=== PATIENT | female | born 1990 ===

== ENCOUNTER 2025-06-08 13:27 | Outpatient (AMB) | payer OTHER, SELFPAY ==
--- NOTE | 2025-06-08 13:40 | A.PHYSOV_ITS ---
Vital Signs 06/08/25 13:50 Height 5 ft 4 in Weight 140 lb BMI 24.0 Intake Visit Reasons: NPV- left hand pain Intake Note: Patient is a 35 year old female here for initial visit. Patient has been referred for left hand pain. Pharmacists Required: No Allergies acetaminophen (From PERCOCET) Allergy (Unknown, Verified 06/08/25 13:41) NAUSEA peanut (PEANUT) Allergy (Unknown, Verified 06/08/25 13:41) RASH HPI Comments Details: History of Present Illness The patient is a 35 year old female presenting for evaluation of left upper extremity symptoms. Her symptoms began in March, a couple of months ago, with an episode where her left hand was completely numb for two days while on vacation, for which she did not seek medical attention. Currently, she experiences permanent numbness and a tingling sensation in her left pinky and the ulnar side of her hand. Associated symptoms include pain that shoots from her hand up to the outside of her elbow and significant hand weakness, which makes it difficult to hold objects and prevents her from working out with her left hand. She also wakes up in the middle of the night with significant pain, which she notices is worse when sleeping with her elbow bent. She denies any associated neck or shoulder pain. She has tried ibuprofen for the pain without significant relief. 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 I reviewed the referring provider's no prior to consultation. Pain Description - Onset: The patient's symptoms started a couple of months ago, around March. - Location: Pain is located in the left hand and radiates up to the outer aspect of the left elbow. - Quality: The patient describes the sensation in her hand as permanently numb and tingly, with shooting pain up to the elbow. - Exacerbating Factors: Pain worsens at night, and she often wakes up with significant pain, particularly when her elbow has been bent during sleep. - Interference with Function: The associated hand weakness makes it difficult to hold objects and prevents her from working out. - Palliative Factors: She reports that ibuprofen is not helping with the pain. [facility] Social History (Updated 06/08/25 @ 13:48 by Belen Mendez MA) Alcohol intake: current Alcohol intake frequency: does not drink Patient Tobacco Use Status: Never used Tobacco Use of substances other than those prescribed or required for medical reasons: No Review of Systems Narrative Review of Systems - Neurological: Reports constant numbness and tingling in the left pinky and ulnar side of the hand, along with subjective weakness in the hand. - Musculoskeletal: Reports pain in the left hand that shoots to the elbow. - Denies neck pain or shoulder pain. Physical Exam Exam Exam: Physical Exam - Cervical Spine: No tenderness to palpation. - Full and painless range of motion with flexion, extension, and bilateral rotation. - Spurling's test was negative bilaterally. - Upper Extremities: Shoulders are non-tender to palpation with full, painless range of motion. - Motor strength is 5/5 and symmetric with wrist supination/pronation, flexion/extension, and hand mortgage loan closer. - Sensation is decreased on the ulnar aspect of the left hand. - Tinel's sign at the cubital tunnel is positive on the left, eliciting tingling in the ulnar nerve distribution. - There is tenderness to palpation over the left lateral epicondyle. - Pain is reproduced at the left lateral epicondyle with resisted wrist extension. - There is no tenderness to palpation over the medial epicondyle. Vital Signs: BMI result Body Mass Index 24.0 Assessment & Plan Assessment & Plan (1) Tennis elbow: Code(s): M77.10 - Lateral epicondylitis, unspecified elbow Category: Medical Qualifiers: Laterality: left Qualified Code(s): M77.12 - Lateral epicondylitis, left elbow (2) Ulnar neuritis: Code(s): G56.20 - Lesion of ulnar nerve, unspecified upper limb Category: Medical Qualifiers: Laterality: right Qualified Code(s): G56.21 - Lesion of ulnar nerve, right upper limb Plan Pain Management - Analgesia: The patient has tried ibuprofen with minimal to no relief. - Activities of Daily Living: The patient reports she is unable to work out with her left hand and has difficulty holding objects due to pain and weakness. Plan Patient was informed and verbally consented to the use of an ambient scribe for clinic note documentation during this visit. 1. Left Ulnar Neuritis The patient's symptoms of numbness and tingling in the ulnar distribution of her left hand (pinky and half of the ring finger), along with a positive Tinel's sign at the elbow, are highly suggestive of ulnar nerve compression, most likely at the cubital tunnel. A cervical spine etiology is less likely given the negative physical exam findings, including a negative Spurling's test. The constant nature of the numbness is concerning for a more aggressive nerve compression. An EMG of the left upper extremity will be ordered to confirm the diagnosis, localize the site of nerve compression, and assess its severity, which will help guide further treatment decisions. The patient was counseled to avoid prolonged or repetitive elbow flexion, such as during sleep or while driving, and to straighten the elbow to alleviate symptoms. 2. Left Lateral Epicondylitis The patient also has a concurrent diagnosis of left lateral epicondylitis, or tennis elbow, evidenced by point tenderness over the lateral epicondyle and pain with resisted wrist extension. This condition is related to the wrist extensor muscles and is considered separate from her neuropathic symptoms. The patient was advised to begin a strengthening program for the wrist extensors, using a light weight (e.g., a soup can) for high-repetition exercises. Other conservative management options discussed include using an elbow strap for activities, physical therapy, and a possible future cortisone injection if symptoms do not improve, though an injection is not recommended at this time. Discussion Notes I discussed with the patient that she appears to have two separate issues occurring in her left arm. I explained that the numbness and tingling in her pi nky and adjacent finger are likely caused by a pinched ulnar nerve, most commonly compressed at the elbow in the cubital tunnel, and less likely originating from her neck. I advised her that avoiding prolonged elbow flexion, especially during sleep, by keeping the arm straight, can help alleviate these symptoms. To further evaluate the nerve issue, I recommended an EMG test. I described the procedure as an electrodiagnostic test that can be uncomfortable, but is useful for identifying the location and severity of nerve compression. I explained that while most cases do not require surgery, monitoring for worsening symptoms is important, as severe, untreated compression can lead to permanent nerve damage over time. For the separate issue of her elbow pain, I diagnosed her with lateral epic ondylitis (tennis elbow). I recommended conservative management including strengthening exercises for the forearm muscles, with options for an elbow strap or formal physical therapy. I mentioned a cortisone shot as a future possibility but would prefer to avoid it for now. The patient agreed with the plan to proceed with the EMG. I will arrange for the test to be done with Dr. O[place]io [place] [facility] and will follow up with her once the results are available to discuss the findings and next steps. Patient Instructions - To help with the numbness and tingling in your hand, try to keep your left arm straight as much as possible, especially when sleeping or driving. - For the pain on the outside of your elbow, begin strengthening exercises by using a light weight (like a soup can) to lift your wrist up and down slowly. - Aim for 20-40 repetitions until you feel a burn in your forearm muscles. - You may purchase an elbow strap at a pharmacy like [facility] to wear during activities to help reduce strain on your elbow. - We are ordering a nerve test called an EMG for your left arm to find out exactly what is causing the numbness and how severe it is. - Our office will contact you with the details for this appointment. - We will contact you to schedule a follow-up appointment to discuss the results of your EMG test and determine the next steps in your treatment. Orders: Orders NE electromyogram (EMG) Today G56.21 - Lesion of ulnar nerve, right upper limb NE nerve conduction velocity Today G56.21 - Lesion of ulnar nerve, right upper limb Coding Level of Care Code Tele New Pt Level 4 (47225) Diagnoses Lateral epicondylitis of left elbow M77.12 Laterality: left Neuritis of right ulnar nerve G56.21 Laterality: right
[2025-06-08 13:50] VITALS: BMI 24.0
--- OUTSIDE RECORDS SUMMARY | 2025-06-08 14:36 | XMS_ITS | Encounter Summary ---
Author Organization [facility] Address [address] [place] [address] Care Team Providers Care Framing Specialist Name Role Phone Shirley Holly MD Primary Care Provider [phone] Encounter Details Date Type Department Care Team ([facility] Contact Info) Description 05/21/2025 Results Follow-Up [facility] [address] [place] [address] Pete Falcon, EVANGELIST [address] [place] [id number] Social History Tobacco Use Types Packs/Day Years Used Date Smoking Tobacco: Never Smokeless Tobacco: Never Alcohol Use Standard Drinks/Week Comments Yes 0 (1 standard drink = 0.6 oz pur e alcohol) social Housing Instability Answer Date Recorde d Are you worried that in the next 2 months you may not have stable housing? No 01/03/2025 Food Access & Nutrition Answer Date Rec orded Do you have access to a vari ety of food including fruits and vegetables? Yes 01/03/2025 Access to Healthcare Answer Date Record ed Within the last 3 months, ho w many times did you visit the emergency department for your medical care? 0 01/03/2025 Health Literacy Answer Date Recorded How often do you need to hav e someone help you when you read instructions, pamphlets, or other written material from your doctor or pharmacy? Never 01/03/2025 Caregiver: How often do you need to have someone help you when you read instructions, pamphlets, or other written material from your doctor or pharmacy? Not on file 01/03/2025 Financial Risk Answer Date Recorded How hard is it for you to pa y for the very basics like food, housing, medical care, and air conditioning / heating? Not very hard 01/03/2025 Transportation Answer Date Recorded Has the lack of transportati on kept you from meetings, work, or from getting things needed for daily living? No Has the lack of transportati on kept you from medical appointments or from getting medications? No 01/03/2025 Social Isolation Answer Date Recorded How often do you feel lonely or isolated from th ose around you? Never 01/03/2025 Food Risk Answer Date Recorded Within the past 12 months we worried whether our food would run out before we got money to buy more. Never true 01/03/2025 Within the past 12 months th e food we bought just didn't last and we didn't have money to get more. Never true 01/03/2025 Dependent Care Answer Date Recorded Do you need help finding or paying for care for your loved ones. For example, child development assistant or elderly care for an older adult? No 01/03/2025 Education Answer Date Recorded Do you think completing more education or training, like finishing a GED, going to college, or learning a trade, would be helpful for you? No 01/03/2025 Employment and Income Answer Date Recor ded During the last four weeks, have you been actively looking for work? No 01/03/2025 Living Situation Answer Date Recorded What is your living situation? Unrecognized valu e 01/03/2025 Comments No Sex and Gender Information Value Date Recorded Sex Assigned at Not on file Legal Sex Female 4:38 AM EST Gender Identity Not on file Sexual Orientation Not on file documented as of this encounter Plan of Treatment Upcoming Encounters Date Type Department Care Team (Late st Contact Info) Description 09/06/2025 9:00 AM EDT [facility] [address] [facility] [place] [phone] Shirley Holly MD [address] [facility] [place] 11/18/2025 9:00 AM EDT Office Visit Internal Medicine - [address] [phone] Pete Falcon NP [address] [place] [id number] documented as of this encounter Visit Diagnoses Not on filedocumented in this encounter Additional Health Concerns Assessment Noted Time PHQ-9 Depression Total Score: 0 01/04/20 12:33 AM EDT documented as of this encounter Care Teams Framing Specialist Relationship Specialty Start Date End Date Shirley Holly MD [address] [place] [address] PCP - General Internal Medicine 01/13/25 documented as of this encounter
--- OUTSIDE RECORDS SUMMARY | 2025-06-08 14:36 | XMS_ITS | Encounter Summary ---
Author Organization [facility] Address [address] [place] [phone] Phone Care Team Providers Care Estate Planning Paralegal Name Role Phone Mary Posey MD Primary Care Provider Unavailabl e Encounter Details Date Type Department Care Team (Late st Contact Info) Description 01/31/2017 Conversion Encounter [facility] - [address] [phone] Social History Tobacco Use Types Packs/Day Years Used Date Smoking Tobacco: Never Assessed Comments Unknown Sex and Gender Information Value Date Recorded Sex Assigned at Not on file Legal Sex Female 4:44 PM EDT Gender Identity Not on file Sexual Orientation Not on file documented as of this encounter Plan of Treatment Not on file documented as of this encounter Visit Diagnoses Not on filedocumented in this encounter Care Teams Estate Planning Paralegal Relationship Specialty Start Date End Date Mary Posey MD PCP - General 01/25/17 documented as of this encounter
--- OUTSIDE RECORDS SUMMARY | 2025-06-08 14:36 | XMS_ITS | Clinical Summary ---
Author Organization [facility] Address [address] [place] [phone] Phone Care Team Providers Care Country Singer Name Role Phone Mary Posey MD Primary Care Provider Unavailabl e Immunizations Immunization Administration Dates Next Due DTP 04/16/1994, 2,1990,09/14,1990 HPV, Quadrivalent 10/23/2007,06/24/2007,04/21/20 07 Hep B, ped/adol 10/20/2001,07/21/2001,05/28/2001 Hib (PRP-T) 05/16/1992,03/16/1991,01/14/1991 IPV 04/16/1994, 2,1990,07/17 Influenza, injectable, trivalent 04/21/2007 MMR 08/21/1993,04/23/1991 Meningococcal Conj (Menactra) MCV4P 01/30/2006 Td (adult) (MBL), 2 Lf tetan us toxoid, PF, adsorbed 07/30/1999 Tdap 04/21/2007 Family History Relation Name Status Comments Brother Alive Brother: Asthma Father Father: Carpal tunnel, tendonitis, Depression Mother Mother: Reflux, Panic attacks, Depression, Anxiety, Hypothyroidism, Arthritis Social History Tobacco Use Types Packs/Day Years Used Date Smoking Tobacco: Never Assessed Comments Unknown Sex and Gender Information Value Date Recorded Sex Assigned at Not on file Legal Sex Female 4:44 PM EDT Gender Identity Not on file Sexual Orientation Not on file Plan of Treatment Health Maintenance Due Date Last Done Comments Varicella Vaccines (1 of 2 - 13+ 2-dose series) 2003 DTaP,Tdap,and Td Vaccines (7 - Td or Tdap) 04/21/2017 04/21/2007, 07/30/1999, 04/16/1994, Additional history exists Influenza Vaccines (#1) 2025 04/21/2007 COVID-19 Vaccine ( season) 2025 HIB Vaccines Completed 05/16/1992, 02/17, 01/14/1991 MMR Vaccines Completed 08/21/1993, 04/23/1991 IPV Vaccines Completed 04/16/1994, 08/17, 1990, Additional history exists Hepatitis B Vaccines Completed 10/20/2001, 07/21/2001, 05/28/2001 Meningococcal Vaccine Aged Out 01/30/2006 No mervat jo eligible based on patient's age to complete this topic HPV Vaccines Completed 10/23/2007, 01/2008, 04/21/2007 Hepatitis A Vaccines Aged Out No long er eligible based on patient's age to complete this topic Men B Vaccine Aged Out No longer elig ible based on patient's age to complete this topic Pneumococcal Vaccine Aged Out No long er eligible based on patient's age to complete this topic Care Teams Country Singer Relationship Specialty Start Date End Date Mary Posey MD PCP - General 01/25/17
--- OUTSIDE RECORDS SUMMARY | 2025-06-08 14:36 | XMS_ITS | Clinical Summary ---
Author Organization [facility] [address] [facility] lding Address [address] [place] [address] Phone Care Team Providers Care Senior Linux Engineer Name Role Phone Shirley Holly MD Primary Care Provider [phone] Allergies No known active allergies Medications tazarotene (TAZORAC) 0.05 % cream APPLY TO AFFECTED AREA EVERY DAY AT BEDTIME 5 Active tretinoin (RETIN-A) 0.1 % cream APPLY TO AFFECTED AREAS EVERY 2-3X A WEEK THEN WORK UP TO EVERY NIGHT 5 Active linaCLOtide (Linzess) 72 mcg capsuleIndicatio ns:Irritable bowel syndrome with mixed bowel habits Take 1 capsule (72 mcg total) by mouth 1 (one) time each day. 30 each 11 5 03/02/20 26 Active ondansetron (ZOFRAN) 4 mg tabletIndication s:Gastritis without bleeding, unspecified chronicity, unspecified gastritis type Take 1 tablet (4 mg total) by mouth every 8 (eight) hours if needed for nausea. 20 tablet 2 5 Active Active Problems Problem Noted Date Diagnosed Date Migraines 02/24/2025 Gastritis Overview (02/24/2025): DX:Gastritis Encounters Date Type Department Care Team Description 05/21/2025 Results Follow-Up Internal Medicine - [facility] [address] [place] [address] Pete Falcon NP 05/20/2025 9:31 AM EST - 05/20/2025 11:59 PM EST [facility] [place] [place] [address] Left hand pain Discharge Disposition: Home or Self Care 05/20/2025 9:00 AM EST Office Visit Internal Medicine - [facility] [place] [address] Pete Falcon NP Left hand pain (Primary Dx) 04/14/2025 Telephone Internal Medicine - [facility] [place] [phone] Shirley Holly MD from Last 3 Months Immunizations Immunization Administration Dates Next Due DTP 04/16/1994, 2,1990,09/14,1990 HPV, Quadrivalent 10/23/2007,06/24/2007,04/21/20 07 Hepatitis B (Csdongl-X-Qpnsg , Recombivax HB-Adult) 19yo and older 04/22/2020,11/25/2019,10/21/2019 Hepatitis B Pediatric (Enger ix B; Recombivax HB) to less than 20 yo 10/20/2001,07/21/2001,05/28/2001 HiB PRP-T conjugate (Acthib, Hiberix) 6wks and older 05/16/1992,03/16/1991,01/14/1991 IPV Inactivated polio (Ipol) 6wks and older 04/16/1994,09/15/1991,1990,07/17 Influenza trivalent, 0.5mL, preservative free (Fluarix; FluLaval; Fluzone) ages 6mo and older (Afluria) 3 years and older 04/09/2025,02/26/2020,04/17/2017,03/26 Influenza trivalent, with pr eservative (Fluzone; Afluria) 6mo and older 03/31/2025,04/21/2007 Influenza, Unspecified 04/10/2023 MMR, measles mumps and rubel la Live (Priorix; M-M-R II) 12mo and older 08/21/1993,04/23/1991 Meningococcal MCV4P 01/30/2006 PPD Test 09/01/2012 Td Tetanus diptheria (Tdvax) 7yo and older 07/30/1999 Tdap Tetanus diptheria acell ular pertussis (Boostrix; Adacel) 7yo and older 12/02/2013,04/21/2007 Surgical History Surgery Date Site/Laterality Comments OTHER SURGICAL HISTORY PROCEDURE: DENIES PREVIOUS SURGERY COLONOSCOPY 11/16/2023 - 12/15/2023 negative random biopsy of colon, 10 yr recall ESOPHAGOGASTRODUODENOSCOPY 11/16/2023 - 12/15/2023 Medical History Medical History Date Comments Migraine DX:Migraine Gastritis DX:Gastritis Family History Medical History Relation Name Comments Asthma Brother 1 anxiety Heart attack Maternal Grandfather Grandpa stroke Hyperlipidemia Maternal Grandmother Grandma dm Asthma Mother anxiety Thyroid disease Mother Relation Name Status Comments Brother 1 Brother 2 Alive Daughter Alive healthy Father Alive Maternal Grandfather Grandpa Alive Maternal Grandmother Grandma Alive Mother Alive Social History Tobacco Use Types Packs/Day Years [...] do you feel lonely or isolated from ose around you? Never 01/03/2025 Food Risk [...] for your loved ones. For example, child psychology teacher or elderly care for an older adult? [...] on file Sexual Orientation Not on file Last Filed Vital Signs Vital Sign Reading Time Taken Comments Blood Pressure 102/72 05/20/2025 8:57 AM EST Pulse 68 05/20/2025 8:57 AM EST Temperature - - Respiratory Rate - - Oxygen Saturation - - Inhaled Oxygen Concentration - - Weight 65.1 kg (143 lb 9.6 oz) 05/20/2025 8:57 A M EST Height 162.6 cm (5' 4 ) 05/20/2025 8:57 AM EST Body Mass Index 24.65 05/20/2025 8:57 AM EST Plan of Treatment Upcoming Encounters Date Type Department Care Team (Late st Contact Info) Description 09/06/2025 9:00 AM EDT Office Visit Internal Medicine - [address] [phone] Shirley Holly MD [address] [place], [place] 11/18/2025 9:00 AM EDT Office Visit Internal Medicine - [address] [phone] Pete Falcon NP [address] [place], [place] Health Maintenance Due Date Last Done Comments Cervical Cancer Screening: Pap Smear 2011 HIV Screening 05/20/2022 Hepatitis C Screening 05/20/2022 DTaP,Tdap,and Td Vaccines (8 - Td or Tdap) 12/03/2023 12/02/2013, 04/21/2007, 07/30/1999, Additional history exists COVID-19 Vaccine (2024- season) 2025 Social Influencers of Health Screening 01/03/2026 01/03/2025 RSV Immunization Adult Patients (1 - 1-dose 75+ series) 2065 HIB Vaccines Completed 05/16/1992, 02/17, 01/14/1991 MMR Vaccines Completed 08/21/1993, 04/23/1991 IPV Vaccines Completed 04/16/1994, 08/17, 1990, Additional history exists Meningococcal ACWY Vaccine Aged Out 01/30/2006 N o longer eligible based on patient's age to complete this topic HPV Vaccines Completed 10/23/2007, 01/2008, 04/21/2007 Hepatitis B Vaccines Completed 04/22/2020, 11/25/2019, 10/21/2019, Additional history exists Depression Screening Completed 01/03/2025 Influenza Vaccine Completed 04/09/2025, , 04/10/2023, Additional history exists Hepatitis A Vaccines Aged Out No long er eligible based on patient's age to complete this topic Meningococcal B Vaccine Aged Out No l onger eligible based on patient's age to complete this topic Pneumococcal Vaccine: Pediatrics (0 to 5 Years) and At-Risk Patients (6 to 49 Years) Aged Out No longer eligible based on patient's age to complete this topic RSV Immunization Patients Under 20 months Aged Out No longer eligible based on patient's age to complete this topic Varicella Vaccines Aged Out No longer eligible based on patient's age to complete this topic Procedures Procedure Name Priority Date/Time Associated Diagnosis Comments XR WRIST 3+ VIEWS LEFT Routine 05/20/2025 9:43 AM EST Left hand pain from Last 3 Months Results * XR Wrist 3+ Views Left (05/20/2025 9:43 AM EST) Anatomical Region Laterality Modality Upper Extremities, Wrist Left Radiogr aphic Imaging 05/20/2025 6:02 PM EST Impressions 05/20/2025 6:05 PM EST No acute bony abnormality or arthritic changes. -------- FINAL REPORT -------- Dictated By: Ashanti Srinivasan Dictated Date: 05/20/2025 18:02 ET Assigned Physician: Ashanti Srinivasan Reviewed and Electronically Signed By: Ashanti Srinivasan Signed Date: 05/20/2025 18:05 ET Workstation ID: [id number] Transcribed By: Self Edit Transcribed Date: 05/20/2025 18:02 ET Narrative 05/20/2025 6:05 PM EST EXAM: Left wrist x-ray HISTORY: Left upper extremity paresthesia and pain (fourth and fifth digits, radiating from elbow). COMPARISON: None FINDINGS: 3 views were performed. No acute fracture or malalignment detected. Joint spaces are maintained. No destructive or erosive bony changes. No soft tissue calcifications. Procedure Note Ashanti Srinivasan MD - 05/20/2025 EXAM: Left wrist x-ray HISTORY: Left upper extremity paresthesia and pain (fourth and fifthdigits, radiating from elbow). COMPARISON: None FINDINGS: 3 views were performed. No acute fracture or malalignment detected. Joint spaces are maintained.No destructive or erosive bony changes. No soft tissue calcifications. IMPRESSION: No acute bony abnormality or arthritic changes. -------- FINAL REPORT -------- Dictated By: Ashanti Srinivasan Dictated Date: 05/20/2025 18:02 ET Assigned Physician: Ashanti Srinivasan Reviewed and Electronically Signed By: Ashanti Srinivasan Signed Date: 05/20/2025 18:05 ET Workstation ID: [id number] Transcribed By: Self Edit Transcribed Date: 05/20/2025 18:02 ET us Pete Falcon MARKETING TECHNOLOGY COORDINATOR IMG XR PROCEDURES Final Result from Last 3 Months Insurance [facility] Care Teams Senior Linux Engineer Relationship Specialty Start Date End Date Shirley Holly MD [address] [place] [address] PCP - General Internal Medicine 01/13/25
--- OUTSIDE RECORDS SUMMARY | 2025-06-08 14:36 | XMS_ITS | Encounter Summary ---
Author Organization [facility] Address [address] [place] [phone] Phone Care Team Providers Care Agency Sales Management Assistant Name Role Phone Mary Posey MD Primary Care Provider Unavailabl e Encounter Details Date Type Department Care Team (Late st Contact Info) Description 11/25/2013 Documentation EM Family Medicine [address] [place] [address] Family Medicine, Physician [address] [place], [place] [id number] Social History Tobacco Use Types Packs/Day Years [...] on filedocumented in this encounter Care Teams Agency Sales Management Assistant Relationship Specialty Start Date End Date Mary Posey MD PCP - General 01/25/17 documented as of this encounter
== END 2025-06-08 14:32 | disposition home or self-care (01) ==
LOC: HO.HPHYS 13:28
PROVIDERS: PCP Internal Medicine; Visit Provider Physician Assistant
DX: M77.12 Lateral epicondylitis, left elbow (principal); G56.21 Lesion of ulnar nerve, right upper limb
CPT/HCPCS: 99204